=== PATIENT | male | born 1950 | race Caucasian/White ===

== ENCOUNTER 2016-12-25 11:32 | Day surgery (SDC) | payer OTHER, MEDICARE ==
--- NOTE | 2016-12-21 09:22 | MH ---
cc: RORY BENITEZ M.D. DATE OF ADMISSION: 12/25/2016 DATE OF 1950 REASON FOR ADMISSION Cardiac catheterization. HISTORY OF PRESENT ILLNESS The patient is a 66-year-old white male with an extensive history of coronary artery disease, mild ischemic cardiomyopathy, valvular heart disease, hyperlipidemia, who is now admitted for cardiac catheterization. The patient, who recently lost his , has been experiencing fairly frequent chest discomfort for the past three weeks lasting up to 10 minutes. The episodes have been occurring mostly with exertion although he has had episodes at rest. Occasionally the chest discomforts are associated with shortness of breath. Rarely he has chest discomforts which awakened him from sleep. For the most part the chest pains are very similar to his previous angina. He denies pleurisy, dizziness, syncope, palpitations, pedal edema, paroxysmal nocturnal dyspnea. PAST MEDICAL HISTORY 1. Moderate aortic regurgitation demonstrated by echoes, stable since 2010, most recent echo 01/26/2016. 2. History of postoperative (bypass surgery) atrial fibrillation. 3. Mild ischemic cardiomyopathy with ejection fraction of 45-50%. 4. Hyperlipidemia. 5. Mild mitral valve prolapse associated with mild to moderate mitral regurgitation demonstrated on echo of 01/26/2016. 6. Coronary artery disease status post bypass surgery in 2001, status post stent of the vein graft to the first obtuse marginal on 10/29/2014, status post repeat stenting of this graft on 01/20/2015, status post re-do bypass surgery on 02/01/2016 with three separate vein grafts to the obtuse marginal, first diagonal, and LAD. Of note at that time there was no adequate vessel to bypass the right coronary. CARDIAC MEDICATIONS 1. Amlodipine 2.5 mg daily. 2. Aspirin 81 mg daily. 3. Crestor 20 mg daily. 4. Monopril 10 mg daily. 5. Isosorbide mononitrate 120 mg daily. 6. Metoprolol succinate 50 mg b.i.d. 7. Plavix 75 mg daily. 8. Ranexa 500 mg b.i.d. ALLERGIES AMOXICILLIN. BACTRIM. MACROBID. PENICILLIN. ZOCOR. FAMILY HISTORY Noncontributory. SOCIAL HISTORY The patient is a former smoker. There is no history of alcohol abuse. REVIEW OF SYSTEMS As in the history of present illness, otherwise negative or noncontributory. PHYSICAL EXAMINATION VITAL SIGNS: Blood pressure 108/64 with a pulse of 66, respirations 15. GENERAL: He is a well-developed, well-nourished white male in no acute distress. HEENT EXAMINATION/NECK: Jugular venous pressure is normal. Carotid pulses are 2+ bilaterally and without bruits. CHEST: Examination of the chest reveals clear lung yanez. On cardiac examination he has a regular rhythm and rate with a grade 1/6 diastolic murmur heard at the left upper sternal border. No gallop is audible. ABDOMEN: On abdominal examination he has a soft, nontender abdomen. Bowel sounds are present. There is no definite hepatosplenomegaly. EXTREMITIES: Examination of the extremities reveals no clubbing, cyanosis or edema. Peripheral pulses are normal throughout. IMPRESSION Recurrent, worsening angina in this 66-year-old white male with an extensive history of coronary artery disease, history of valvular heart disease, hyperlipidemia, mild cardiomyopathy. The patient has been having some episodes of chest discomfort at rest. He is on fairly maximal medical therapy at this point. Because of the instability of his symptoms he has been recommended repeat cardiac catheterization with possible percutaneous coronary or graft intervention the risks of which have explained him including but not limited to , myocardial infarction, stroke, arrhythmia, bleeding, infection, renal failure. He agrees to proceed. PLAN Cardiac catheterization on 12/25/2016. MD DHEERAJ Gaitan/LEFTY /10:28 AM /9:12 AM JURGEN
[~2016-12-25] VITALS: Ht 175.3 cm; Wt 78.6 kg
[~2016-12-25 11:32] MED LIST: ASPI81CH CHEW; DICL50TA3 PO; FOSI10TA PO; IMDU60TA PO; LEVO75TA3 PO; METO50TA11 PO; PLAV75TA29 PO; PROT40TA PO; RANO500 PO; ROSU20 PO
[2016-12-25] MEDS ORDERED: NS 1000P @30 MLS/HR (KVO) IV SCH (12:00)
[2016-12-25 12:10] VITALS: BP 152/93; PULSE 68; RESP 18; TEMP 98.5; O2SAT 100
[2016-12-25 12:14] LABS: BASOPHIL % 0.7 % (0.0-2.0); EOSINOPHIL # 0.2 TH/MM3 (0-0.4); EOSINOPHIL % 3.1 % (0.0-4.0); HEMATOCRIT 41.9 % (39.0-51.0); HEMO FLAGS DIFF FINAL; LYMPH % 24.1 % (9.0-44.0); LYMPHOCYTE # 1.2 TH/MM3 (1.0-4.8); MEAN CELL VOLUME 93.2 FL (80.0-100.0); MEAN CORPUSCULAR HEMOGLOBIN 31.8 PG (27.0-34.0); MEAN CORPUSCULAR HGB CONC 34.1 % (32.0-36.0); MONO % 11.7 % (0.0-8.0); NEUT % 60.4 % (16.0-70.0); PLATELET COUNT 264 TH/MM3 (150-450); RED CELL DISTRIBUTION WIDTH 13.5 % (11.6-17.2)
[2016-12-25] MEDS ORDERED: ONDA1TAB16 (12:28)
[2016-12-25] MEDS ORDERED: ISOS120T PO (12:28)
[2016-12-25] MEDS ORDERED: AMLO2.5T PO (12:28)
[2016-12-25 12:32] LABS: BICARBONATE 24.8 MEQ/L (21.0-32.0)
[2016-12-25 12:39] LABS: POTASSIUM 5.1 MEQ/L (3.5-5.1)
[2016-12-25] MEDS ORDERED: HEPARIN-NS/PF INJ 500 ML ONE (13:17)
[2016-12-25] MEDS ORDERED: MIDAZOLAM HCL 2 MG/2 ML VIAL ONE (13:17)
[2016-12-25] MEDS ORDERED: SODIUM CHLOR 0.9% 1000 ML INJ 1,000 ML IV ONE (14:21)
--- NOTE | 2016-12-25 14:21 | CATHPROC ---
Certess HIS Report Study Information Study Number Admission Scheduled Start Study Start [id number] 12/25/2016 12/25/2016 Dec 25 2016 1:12PM Study Type Left/Possible PCI Referring Institution Admit Source Facility Department 1 Other [facility] - Journeyman Operator Assistant Physician and Clinical Staff Initial Ramesh Burnette Crown Perforator Operator Tirso RN, Sy Mack,SHEET ROCK TAPER(BS) Scrub Tierra Guerrier,RT(R) (BS) Procedures Performed Procedure Location (Site) Vessel Name Angiogram LV LV Ventricle Coronary Angiograms LCA Left Coronary Coronary Angiograms RCA Right Coronary Coronary Angiograms MOMIN Graft Left Coronary Coronary Angiograms SVG-DIAG Left Coronary Coronary Angiograms SVG-OM CIRC Equipment Time Shop Steward Description Size Mfg Part Number Used/Scraped TRANSDUCER, TRUWAVE 13:25 TAI PHELPS * [id number] Used W/STOCKCOCK 14:08 [employer] MEDICAL VASCADE, FR6 CLOSURE SYSTEM FR 6\7 [id number] Used 13:25 [employer] PACK, CCL CUSTOM * [id number] Used 13:25 [employer] ([employer]) PACER PEN, SKIN DUAL W/ RULER * [id number] Used [id number] 13:25 [employer] MEDICAL SHEATH, FR6.5 PRELUDE 11CM FR 6.5 Used [id number] 13:25 [employer] MEDICAL WIRE, 3MMJ .035 180CM 180CM [id number] Used 13:25 NAMIC MANIFOLD, 4 PORT * [id number] Used 13:48 [employer] OMNIPAQUE, 350 MG, 150ML 150ML [id number] Used 13:25 [employer] MEDICAL BLANKET,WARM AIR CCL * [id number] Used History: Current Medications Medication Dosage/Unit Route Frequency Last Date/Time Taken Beta Dion Statins (any) PLAVIX ASA History: Allergies Allergy Reaction Amoxicillin RASH Bactrim RASH Macrodantin Penicillin RASH Zocor History: Risk Factors Family History of Hypertension Dyslipidemia Previous CT Previous Heart Failure Premature CAD Yes Yes No No No Prior Valve Prior PCI Prior PCIDate Prior CABG Prior CABGDate Surgery No Yes 10/26/2015 Yes 02/01/2016 Cerebrovascular Peripheral Artery Chronic Lung On Dialysis Diabetes Disease Disease Disease No No No No No History: Symptoms/Diagnosis Selection Items Angina-unstable History: Other Current Smoker Method Quit Packs a Day Years Used Pack Years No Cigarettes 35 Years Ago 1 5 5 Labs Hgb (g/dl) Hct (%) WBC (l/cumm) Platelets (thousands) 12.00-18.00 37.00-55.00 4.80-10.80 140.00-450.00 14.3 41.9 5 264 Glucose (mg/dl) BUN (mg/dl) Creatinine (mg/dl) BUN:Creatinine (1:x) 60.00-110.00 8.00-20.00 0.10-9.00 10.00-20.00 88 19 1.1 17.3 Na (meq/l) K (meq/l) 138.00-146.00 3.80-5.10 137 5.1 CPK-MB (ng/ML) 0.00-7.00 Not Drawn Medication Medication Total Dose (Bolus/Oral) Medication Total Dosage/Unit 1% XYLOCAINE 20 mL VERSED 2 mg Medications (Bolus/Oral) Medication Time Given Dosage/Unit Administered By Reason 1% XYLOCAINE 12/25/2016 1:43:03 PM 20 mL Ramesh Esquivel 20 mL 1% XYLOCAINE given in lab by Ramesh Esquivel in Right Groin via Subcutaneous. Ordered by Kevin Esquivel enn. VERSED 12/25/2016 1:43:06 PM 2 mg Tony Chahal RN 2 mg VERSED given in lab by Tony Chahal RN in Left Antecubital via Peripheral IV. Ordered by Ramesh Esquivel. Medication (Drip) Medication Time Given Dosage/Unit Concentration/Unit Diluent (ml) Solution IV Solutions 12/25/2016 1:17:54 PM 0 mL (IV) 500 NaCl .9 Patient arrived on IV Solutions given by Tony Chahal RN in Left Antecubital via Peripheral IV. Pump/ Drip Flow = 20 ml/hr using NaCl .9. Ordered by Ramesh Esquivel. Initial Case Assessment Cardiovascular HR Rhythm NIBP Chest Pain 71 SR W AV BLOCK 121/73 2 Edema Present Skin color Skin None Normal Warm Dry Circulatory - Right Pulses Dorsalis Pedis Posterior Tibial Femoral 2 2 3 Scale (0,1,2,3,4,d) Circulatory - Left Pulses Dorsalis Pedis Posterior Tibial Femoral 2 2 3 Scale (0,1,2,3,4,d) Circulatory - Lower Extremities Color Lower Right Color Lower Left Normal Normal Neurological State Oriented to time-place- Alert Moves all extremities person Respiration - General Respiration Rate SpO2 (%) (B/min) 20 97 Final Case Assessment Cardiovascular HR Rhythm NIBP Chest Pain 87 SR W AV BLOCK 106/61 2 Edema Present Skin color Skin None Normal Warm Dry Circulatory - Right Pulses Dorsalis Pedis Posterior Tibial Femoral 2 2 3 Scale (0,1,2,3,4,d) Circulatory - Left Pulses Dorsalis Pedis Posterior Tibial Femoral 2 2 3 Scale (0,1,2,3,4,d) Circulatory - Lower Extremities Color Lower Right Color Lower Left Normal Normal Neurological State Oriented to time-place- Alert Moves all extremities person Respiration - General Respiration Rate SpO2 (%) (B/min) 20 97 Chronological Log Time Study Chronological Log 13:10:00 Patient arrived via Bed. 13:10:04 Patient Name, D.O.B, / Armband Verified By R.N. 13:10:04 Consent signed by the physician and the patient and verified by the Journeyman Operator Assistant staff. 13:10:05 Pre-op and post- op instructions given; patient acknowledges understanding of instructions. Vitals capture started with the following parameters, Patient=Adult, Interval=5 min, Initial Pr pfdzqk=140 mmHg, 13:14:42 Deflation Rate=5 mmHg 13:15:24 HR=71 bpm, FWWP=706/74 mmhg, YvK1=398.0 %, Resp=15 B/min, Pain=2, Staci=10, Ram=2 13:17:00 Patient has been NPO for Less than 6Hrs. 13:17:01 Skin Breakdown. 13:17:02 Patient Warmer Placed on the Table. 13:17:53 A # 20 IV was noted in the Antecubital (left). Grade = 0 Patient arrived on IV Solutions given by Toyn Chahal RN in Left Antecubital via Peripheral IV. Pump/Drip Flow = 20 13:17:54 ml/hr using NaCl .9. Ordered by Ramesh Esquivel. 13:17:56 History and physical on the chart or being dictated. Assessment: Initial Case, HR=71 BPM, Rhythm=SR W AV BLOCK, HYZH=236/73 mmhg, Chest Pain=2, Roger a=None, Color=Normal, Skin = Warm, Dry Right Pulses: Julian Ped=2, Post Tib=2, Femoral=3 Left Pulses: Julian Ped=2, Post Tib=2, Femoral=3 13:17:56 Lower Right Extremities: Color=Normal Lower Left Extremities: Color=Normal Neurological: State=Alert, Ox3, IRVIN Respiration: Resp=20 B/min, SpO2=97 % 13:20:15 HR=71 bpm, YAGV=390/72 mmhg, KaC5=756.0 %, Resp=11 B/min, Pain=2, Staci=10, Ram=2 13:25:18 HR=65 bpm, OOBH=303/73 mmhg, SpO2=99.0 %, Resp=16 B/min, Pain=2, Staci=10, Ram=2 13:29:05 Pressure channel 1 zeroed. 13:30:19 HR=72 bpm, CYDI=402/63 mmhg, SpO2=97.0 %, Resp=14 B/min, Pain=2, Staci=10, Ram=2 13:31:18 Bilateral groins prepped with 2% chlorhexidine, and with a 3 min. waiting time. 13:31:22 MD paged 13:33:27 Reference ECG taken 13:35:18 HR=69 bpm, VSVH=493/72 mmhg, SpO2=99.0 %, Resp=14 B/min, Pain=2, Staci=10, Ram=2 13:39:36 MD arrived. 13:40:17 HR=70 bpm, ECLF=781/70 mmhg, SpO2=97.0 %, Resp=12 B/min, Pain=2, Staci=10, Ram=2 Time Out. Correct patient, correct procedure,correct physician, power injector loaded with cont rast with surgical team 13:42:10 present. Time Out Concurred by , individual staff in procedure 13:42:12 Case Start 13:43:03 20 mL 1% XYLOCAINE given in lab by Ramesh Esquivel in Right Groin via Subcutaneous. Ordered by Ramesh Esquivel. 13:43:06 2 mg VERSED given in lab by Tony Chahal RN in Left Antecubital via Peripheral IV. Ordered by Ramesh Esquivel. 13:45:51 Access site was RIGHT Femoral Artery. 13:45:53 HR=72 bpm, PKTN=945/70 mmhg, SpO2=97.0 %, Resp=16 B/min 13:46:00 A SHEATH, FR6.5 PRELUDE 11CM FR 6.5 was advanced into the Fem Art (right) using the Percuta neous technique. A JL 4.0 INFINITI CATHETER FR 6 was advanced over a wire. OMNIPAQUE, 350 MG, 150ML 150ML was us ed for 13:46:45 injections. Recorded Pressure: Ao, HR=78, Condition=Condition 1 13:47:14 (Aorta) Ao 112/65/86 13:47:42 The LCA was injected and visualized at various angles. OMNIPAQUE, 350 MG, 150ML 150ML used . 13:48:06 Catheter was removed A 3DRC INFINITI CATHETER FR 6 was advanced over a wire. OMNIPAQUE, 350 MG, 150ML 150ML was used for 13:48:10 injections. 13:48:58 The SVG-DIAG was injected and visualized at various angles. OMNIPAQUE, 350 MG, 150ML 150ML used. 13:50:19 HR=93 bpm, LALJ=660/79 mmhg, SpO2=96.0 %, Resp=19 B/min, Pain=2, Staci=10, Ram=2 13:50:42 The SVG-OM was injected and visualized at various angles. OMNIPAQUE, 350 MG, 150ML 150ML us ed. Recorded Pressure: Ao, HR=92, Condition=Condition 1 13:51:13 (Aorta) Ao 127/68/94 13:52:00 The MOMIN Graft was injected and visualized at various angles. OMNIPAQUE, 350 MG, 150ML 150M L used. 13:54:10 Catheter was removed A AR MOD INFINITI CATHETER FR 6 was advanced over a wire. OMNIPAQUE, 350 MG, 150ML 150ML was us ed for 13:54:11 injections. 13:55:20 HR=83 bpm, NTMM=580/66 mmhg, SpO2=97.0 %, Resp=13 B/min, Pain=2, Staci=10, Ram=2 13:56:25 Catheter was removed A 3DRC INFINITI CATHETER FR 6 was advanced over a wire. OMNIPAQUE, 350 MG, 150ML 150ML was used for 13:57:17 injections. 13:58:16 The RCA was injected and visualized at various angles. OMNIPAQUE, 350 MG, 150ML 150ML used . 14:00:11 Catheter was removed 14:00:22 HR=84 bpm, JYJL=512/70 mmhg, SpO2=97.0 %, Resp=18 B/min, Pain=2, Staci=10, Ram=2 A MPA-2 INFINITI CATHETER FR 6 was advanced over a wire. OMNIPAQUE, 350 MG, 150ML 150ML was us ed for 14:00:40 injections. 14:03:08 Catheter was removed A PIGTAIL STR INFINITI CATHETER FR 6 was advanced over a wire. OMNIPAQUE, 350 MG, 150ML 150ML was used for 14:03:12 injections. 14:03:38 The LV was injected at 12 cc/sec for a total of 42. OMNIPAQUE, 350 MG, 150ML 150ML used. Recorded Pressure: LV, HR=89, Condition=Condition 1 14:04:03 (Left Ventricle) LV 118/2/11 14:05:21 HR=81 bpm, BKJG=193/61 mmhg, SpO2=95.0 %, Resp=15 B/min, Pain=2, Staci=10, Ram=2 Recorded Pressure: LV, Ao, HR=84, Condition=Condition 1 14:06:01 (Left Ventricle) LV 113/-1/10, (Aorta) Ao 104/50/75 14:06:49 Catheter was removed 14:06:54 An injection in the Fem Art (right) was made through the SHEATH, FR6.5 PRELUDE 11CM FR 6.5 . 14:07:40 VASCADE, FR6 CLOSURE SYSTEM FR 6\7 placement in the Fem Art (right) 14:08:47 Case End Assessment: Final Case, HR=87 BPM, Rhythm=SR W AV BLOCK, SLOI=671/61 mmhg, Chest Pain=2, Edema =None, Color=Normal, Skin = Warm, Dry Right Pulses: Julian Ped=2, Post Tib=2, Femoral=3 Left Pulses: Julian Ped=2, Post Tib=2, Femoral=3 14:08:57 Lower Right Extremities: Color=Normal Lower Left Extremities: Color=Normal Neurological: State=Alert, Ox3, IRVIN Respiration: Resp=20 B/min, SpO2=97 % 14:10:20 HR=82 bpm, XJAC=235/60 mmhg, SpO2=98.0 %, Resp=21 B/min, Pain=2, Staci=10, Ram=2 14:10:32 Sterile dressing applied to site 14:10:33 No case complications noted. 14:10:36 Cine recording checked. 14:17:42 Vitals capture stopped. End Study - Contrast Media Used In Study Contrast Total Opened (mL) Total Used (mL) Total Wasted (mL) Omnipaque 150 150 0 End Study - Maximum Contrast Load Max Contrast Load (mL) 357.2 End Study - Radiation Exposure Fluoro Time (minutes) 7.5 End Study - Patient Disposition Complications Transferred To No Telemetry Bed
[2016-12-25] MEDS ORDERED: ATROPINE SULFATE 1 MG/ML VIAL IVP PRN (14:30)
[2016-12-25] MEDS ORDERED: ONDANSETRON HCL 4 MG/2 ML VIAL IV PRN (14:30)
[2016-12-25] MEDS ORDERED: SODIUM CHLOR 0.9% 250 ML INJ 250 ML IV PRN (14:30)
--- NOTE | 2016-12-25 14:57 | MA ---
cc: RORY BENITEZ M.D. DATE: 12/25/2016 PROCEDURE Left heart catheterization, selective coronary and graft angiography, left ventriculography. PROCEDURE NOTES The patient was brought to the cardiac catheterization laboratory in a fasting state after having signed informed consent. The right groin was prepped and draped as per policy and anesthetized with 1% lidocaine. Arterial access was obtained via the right femoral artery and a 6-Senegalese sheath placed. Coronary arteriography was performed using 6-Senegalese Cheryl left 4.0 and multipurpose catheters. All of the bypass grafts were engaged with a progressive right catheter. Left ventriculography was done using a standard 6-Senegalese pigtail. There were no apparent immediate complications. His arteriotomy site was closed with Vascade with the achievement of good hemostasis. HEMODYNAMIC DATA Left ventricle 113 with an end-diastolic pressure of 15. Aorta 104/50 with a mean of 75. There was no significant transvalvular aortic gradient on pullback of the pigtail catheter. CORONARY ARTERIOGRAPHY The left main is probably diffusely diseased. It is difficult to quantify the degree of stenosis but likely approaches 40% distally. The left anterior descending is totally occluded proximally. A very small diagonal arises from the proximal LAD and there may be up to 80% ostial stenosis of the diagonal. The left circumflex is a medium-sized vessel giving rise to a small obtuse marginal, which has 90% ostial stenosis. The left circumflex has diffuse proximal disease resulting in up to 20% stenosis. The right coronary artery was difficult to selectively engage. Sub-selective shots do reveal diffuse severe disease from its proximal to midportion resulting in up to 80% stenosis, and the vessel appears to be totally occluded distally. There are good LAD to right coronary collaterals. GRAFT ANGIOGRAPHY The left internal mammary artery is very atretic and tortuous with a network of small vessels surrounding it. It may have been at one time anastomosed to the LAD, but appears to be nonfunctioning as a bypass graft at this time. An old Y-graft to the LAD and diagonal was engaged and has 80% ostial stenosis. The newer Y-graft to the LAD and diagonal is widely patent. A graft to the obtuse marginal has diffuse mild irregularities of the midportion resulting in up to 20% stenosis. The patient's vein graft to the right coronary artery is known to be chronically totally occluded. LEFT VENTRICULOGRAPHY Contrast injection of the left ventricle reveals no segmental wall motion abnormalities. Ejection fraction is estimated at 55-60%. There may also be moderate mitral regurgitation. CONCLUSIONS 1. Severe three-vessel [place]ct[place] coronary artery disease including a totally occluded but well-collateralized right coronary artery. 2. Patent Y-graft to the LAD and diagonal, patent vein graft to the obtuse marginal, chronically totally occluded vein graft to the right coronary artery. 3. Normal left ventricular function with estimated ejection fraction of 55-60%. 4. Possible moderate mitral regurgitation. MD DHEERAJ Gaitan/NICOLE /2:18 PM /2:51 PM MTDTeresa
[2016-12-25] MEDS ORDERED: IOHEXOL 350 MG/ML 100 ML BTL (for Cath Lab) OTHER ONE (15:19)
--- NOTE | 2016-12-25 22:39 | EKG ---
Date Performed: 12/25/2016 Time Performed: 12:14:18 PTAGE: 66 years EKG: Sinus rhythm with borderline 1st degree A-V block Nondiagnostic inferior Q waves Borderline ECG PREVIOUS TRACING : 07/03/2016 17.09 No significant change from previous tracing noted. DOCTOR: Ramesh Esquivel Interpretating Date/Time 12/25/2016 22:39:17
== END 2016-12-25 16:36 | disposition home or self-care (01) ==
LOC: HCAT 11:32 → HDIC 11:35 → HCAT 16:36
PROVIDERS: ATTEND Internal Medicine Cardiovascular Disease
DX: I25.10 Atherosclerotic heart disease of native coronary artery without angina pectoris (principal); T82.858A Stenosis of other vascular prosthetic devices, implants and grafts, initial encounter; I25.5 Ischemic cardiomyopathy; I48.91 Unspecified atrial fibrillation; I34.0 Nonrheumatic mitral (valve) insufficiency; I34.1 Nonrheumatic mitral (valve) prolapse; Z79.82 Long term (current) use of aspirin; E78.5 Hyperlipidemia, unspecified; Z87.891 Personal history of nicotine dependence; Z01.818 Encounter for other preprocedural examination
CPT/HCPCS: 80048; 85025; 93005; 93459; C1760; C1769; C1893; G0269; J1644; J2250; Q9967

== ENCOUNTER 2017-06-08 17:27 | Observation (INO) | payer OTHER, MEDICARE ==
[~2017-06-08] VITALS: Ht 175.3 cm; Wt 82.0 kg
[~2017-06-08 17:27] MED LIST changes: +AMLO2.5T PO; -ASPI81CH CHEW; +ASPI81CH PO; -IMDU60TA PO; +ISOS120T PO; +ONDA1TAB16
[2017-06-08 17:31] VITALS: BP 192/92; PULSE 90; RESP 16; TEMP 98; O2SAT 95
[2017-06-08] MEDS ORDERED: SODIUM CHLORIDE 0.9% FLUSH 10 ML FLUSH IVF PRN (18:00)
[2017-06-08] MEDS ORDERED: ASPIRIN 81 MG CHEW TAB PO ONE ×2 (18:00→20:00)
[2017-06-08 18:05] VITALS: BP 147/70; PULSE 80; RESP 18; O2SAT 98
--- NOTE | 2017-06-08 18:06 | PD ---
HPI Chief Complaint: Chest Pain Time Seen by Provider: 17:45 Travel History International Travel<30 days: No Contact w/Intl Traveler<30days: No Traveled to known affect area: No History of Present Illness HPI Patient comes in complaining of intermittent chest tightness over the past week. Patient states that today after he got home from work he is feeling fatigued and having some tightness in his chest substernally without radiation. Patient states he's been monitoring his blood pressure over the past week has been running high for him going between the 140s to 160s systolically. Patient denies anything making this better or worse. Denies taking anything for prior coming to the emergency department. Patient reports he contacted his learning disabilities resource teacher's office and told them that he was coming to the emergency department for this. Denies any shortness of breath, diaphoresis, numbness or tingling anywhere, back pain, headache, or loss or change in bowel or bladder. Patient reports he takes baby aspirin along with Plavix daily, has not taken that today. Patient reports the pain is constant and has not resolved yet. Patient reports that he had a stress test this past November was reportedly fine. Patient states he did have a cardiac catheter done a month or 2 after that that was fine as well. Patient sees Dr. Esquivel. [facility] Past Medical History Hx Anticoagulant Therapy: Yes (PLAVIX AND ASA) Autoimmune Disease: No Cancer: Yes (basal cell carcinoma ) Cardiovascular Problems: Yes (hx: 5 caths) High Cholesterol: No Chemotherapy: No Chest Pain: No Congestive Heart Failure: No Diabetes: No Endocrine: No Gastrointestinal Disorders: No Glaucoma: No Headaches: Yes Hiatal Hernia: No Hypertension: Yes Immune Disorder: No Musculoskeletal: No Neurologic: Yes Psychiatric: No Respiratory: No Integumentary: No Seizures: No Thyroid Disease: Yes (goiter on thyroid- takes synthroid ) Past Surgical History Cardiac Surgery: Yes (open heart procedure ) Coronary Artery Bypass Graft: Yes (5 BYPASS GRAFTS) Pacemaker: No Thoracic Surgery: Yes (cabg) Other Surgery: Yes (CERVICAL FUSION, HERNIA REPAIR INGUINAL) Social History Alcohol Use: No (OCCASIONAL) Tobacco Use: No Substance Use: No Allergies-Medications (Allergen,Severity, Reaction): Coded Allergies: amoxicillin (Unverified Allergy, Severe, RASH, 06/08/17) penicillin G (Unverified Allergy, Severe, RASH, 06/08/17) simvastatin (Unverified Allergy, Severe, 06/08/17) sulfamethoxazole (Unverified Allergy, Severe, RASH, 06/08/17) trimethoprim (Unverified Allergy, Severe, RASH, 06/08/17) nitrofurantoin (Unverified Allergy, Intermediate, 06/08/17) Reported Meds & Prescriptions Reported Meds & Active Scripts Active Reported Cranberry (Cranberry Fruit Extract) 500 Mg Capsule 500 Mg PO BID Ascorbic Acid 500 Mg Tab 500 Mg PO BID Multiple Vitamin 1 Tab 1 Tab PO DAILY Isosorbide Mononitrate ER (Isosorbide Mononitrate) 60 Mg Tab 60 Mg PO DAILY Amlodipine (Amlodipine Besylate) 2.5 Mg Tab 2.5 Mg PO DAILY Diclofenac Sodium DR (Diclofenac Sodium) 50 Mg Tabdr 50 Mg PO BID Protonix (Pantoprazole Sodium) 40 Mg Tab 40 Mg PO DAILY Fosinopril (Fosinopril Sodium) 10 Mg Tab 10 Mg PO DAILY Plavix (Clopidogrel Bisulfate) 75 Mg Tab 75 Mg PO DAILY Levothyroxine (Levothyroxine Sodium) 75 Mcg Tab 75 Mcg PO DAILY Metoprolol Succinate ER 24 HR (Metoprolol Succinate) 50 Mg Tab 50 Mg PO DAILY Crestor (Rosuvastatin Calcium) 20 Mg Tab 20 Mg PO DAILY Aspirin 81 Mg Chew 81 Mg PO DAILY Review of Systems Except as stated in HPI: all other systems reviewed are Neg Physical Exam Narrative GENERAL: Well-developed, overly nourished, in no acute distress, and non-ill appearing. SKIN: Focused skin assessment warm and dry. HEAD: Atraumatic. Normocephalic. EYES: Pupils equal and round. EOMI. No scleral icterus. No injection or drainage. ENT: No nasal bleeding or discharge. Mucous membranes pink and moist. NECK: Trachea midline. No JVD. Supple. No nuclear rigidity. CARDIOVASCULAR: Regular rate and rhythm. No murmur appreciated. RESPIRATORY: No accessory muscle use. No respiratory distress. Clear to auscultation. Breath sounds equal bilaterally. MUSCULOSKELETAL: No obvious deformities. No clubbing. No cyanosis. No edema. Full range of motion. NEUROLOGICAL: Awake and alert. No obvious cranial nerve deficits. Motor grossly within normal limits. Normal speech. PSYCHIATRIC: Appropriate mood and affect; insight and judgment normal. Data Data Last Documented VS Vital Signs Date Time Temp Pulse Resp B/P (MAP) Pulse Ox O2 Delivery O2 Flow Rate FiO2 06/08/17 19:33 69 133/69 (90) 06/08/17 19:33 19 96 Room Air 06/08/17 17:31 98.0 Orders Orders Electrocardiogram (06/08/17 17:53) Basic Metabolic Panel (Bmp) (06/08/17 17:53) Ckmb (Isoenzyme) Profile (06/08/17 17:53) Complete Blood Count With Diff (06/08/17:53) Magnesium (Mg) (06/08/17:53) Prothrombin Time / Inr (Pt) (06/08/17:53) Act Partial Throm Time (Ptt) (06/08/17:53) Troponin I (06/08/17:53) Chest, Single Ap (06/08/17:53) Ecg Monitoring (06/08/17:53) Bilateral Bp Monitoring (06/08/17:53) Iv Access Insert/Monitor (06/08/17:53) Oximetry (06/08/17:53) Oxygen Administration (06/08/17 17:53) Aspirin Chew (Aspirin Chew) (06/08/17 18:00) Sodium Chloride 0.9% Flush (Ns Flush) (06/08/17 18:00) CKMB (06/08/17 18:15) CKMB% (06/08/17 18:15) Admit Order (Ed Use Only) (06/08/17 19:58) Activity Bed Rest With Brp (06/08/17 19:58) Vital Signs (Adult) Q4H (06/08/17 19:58) Cardiac Rhythm .As Directed (06/08/17 19:58) Notify Dr: Other .PRN (06/08/17 19:58) Notify Dr. Parameters (06/08/17 19:58) Resp Oxygen Nasal Cannula (06/08/17 ) Ckmb (Isoenzyme) Profile (06/08/17 21:25) Ckmb (Isoenzyme) Profile (06/09/17 00:25) Troponin I (06/08/17 21:25) Troponin I (06/09/17 00:25) Electrocardiogram (06/08/17 21:25) Electrocardiogram (06/09/17 00:25) ^ Obtain (06/08/17 19:58) Sodium Chloride 0.9% Flush (Ns Flush) (06/08/17 20:00) Sodium Chloride 0.9% Flush (Ns Flush) (06/08/17 21:00) Aspirin Chew (Aspirin Chew) (06/08/17 20:00) Forestry Adviser / Telemetry TOMAS.Q8H (06/08/17 19:58) Labs Laboratory Tests Test 06/08/17 18:15 White Blood Count 8.1 TH/MM3 Red Blood Count 4.19 MIL/MM3 Hemoglobin 13.4 GM/DL Hematocrit 38.5 % Mean Corpuscular Volume 91.7 FL Mean Corpuscular Hemoglobin 32.0 PG Mean Corpuscular Hemoglobin Concent 34.9 % Red Cell Distribution Width 13.1 % Platelet Count 216 TH/MM3 Mean Platelet Volume 7.2 FL Neutrophils (%) (Auto) 68.9 % Lymphocytes (%) (Auto) 18.8 % Monocytes (%) (Auto) 9.5 % Eosinophils (%) (Auto) 2.4 % Basophils (%) (Auto) 0.4 % Neutrophils # (Auto) 5.6 TH/MM3 Lymphocytes # (Auto) 1.5 TH/MM3 Monocytes # (Auto) 0.8 TH/MM3 Eosinophils # (Auto) 0.2 TH/MM3 Basophils # (Auto) 0.0 TH/MM3 CBC Comment DIFF FINAL Differential Comment Prothrombin Time 9.9 SEC Prothromb Time International Ratio 0.9 RATIO Activated Partial Thromboplast Time 26.2 SEC Blood Urea Nitrogen 17 MG/DL Creatinine 0.91 MG/DL Random Glucose 87 MG/DL Calcium Level 9.3 MG/DL Magnesium Level 2.2 MG/DL Sodium Level 136 MEQ/L Potassium Level 4.3 MEQ/L Chloride Level 104 MEQ/L Carbon Dioxide Level 23.4 MEQ/L Anion Gap 9 MEQ/L Estimat Glomerular Filtration Rate 83 ML/MIN Total Creatine Kinase 173 U/L Creatine Kinase MB 2.7 NG/ML Troponin I LESS THAN 0.02 NG/ML MDM Medical Decision Making Medical Screen Exam Complete: Yes Emergency Medical Condition: Yes Interpretation(s) EKG reviewed by Dr. Fernandez shows normal sinus rhythm with ventricular rate of 67. No STEMI. Last Impressions Chest X-Ray 06/08/17 1753 Signed Impressions: Service Date/Time: Thursday, June 08, 2017 18:15 - CONCLUSION: Cardiomegaly. The lungs are clear. Samuel Green MD Differential Diagnosis Acute coronary syndrome, angina, unstable angina, ocular abnormality, pneumonia , other Narrative Course Patient was seen and examined. Laboratory radiological studies were ordered. IV was established patient was placed on a php lamp developer. Patient was given total of 243 mg of ASA. Discussed patient with Dr. Fernandez, who is in agreement with plan of care and disposition. Discussed all of findings and plan care of patient, who is agreeable for admission. All questions were answered. Patient remained stable throughout ED course. On reevaluation the patient's blood pressure was noted to be 133/69. Physician Communication Physician Communication [address] Reed, who is covering for Dr. Esquivel. After patient reviewed patient's previous cardiac catheter feels as though patient is able to be evaluated in the chest pain center. Diagnosis Primary Impression: Chest pain Qualified Codes: R07.9 - Chest pain, unspecified Admitting Information Admitting Physician Requests: Observation Condition: Stable Terence Mancia Jun 08, 2017 18:06
[2017-06-08 18:12] VITALS: PULSE 73; RESP 18; O2SAT 99
[2017-06-08] MEDS ORDERED: ISOS60TA PO (18:39)
[2017-06-08] MEDS ORDERED: ASCO500T PO (18:41)
[2017-06-08] MEDS ORDERED: CRAN500C9 PO (18:41)
[2017-06-08] MEDS ORDERED: MULTTAB67 PO (18:41)
--- NOTE | 2017-06-08 18:47 | RADRPT ---
EXAM DATE/TIME: 06/08/2017 18:15 [place] COMPARISON: CHEST SINGLE AP, July 03, 2016, 11:35. INDICATIONS : Patient states that he is having problems with his blood pressure today. MEDICAL HISTORY : Cardiovascular disease. Hypertension. Afib. SURGICAL HISTORY : CABG. Fusion, cervical. ENCOUNTER: Initial ACUITY: 1 day PAIN SCORE: 2/10 LOCATION: Bilateral upper chest FINDINGS: The patient is status post sternotomy. The heart size is enlarged. The lungs are clear. No effusion i s seen. Clips are seen over the left clavicle. There is anterior cervical fusion plate present. CONCLUSION: Cardiomegaly. The lungs are clear. Samuel Green MD on June 08, 2017 at 18:45 Board Certified Radiologist. This report was verified electronically.
[2017-06-08 19:01] LABS: AUTOMATED NEUTROPHIL # 5.6 TH/MM3 (1.8-7.7); BASOPHIL % 0.4 % (0.0-2.0); EOSINOPHIL # 0.2 TH/MM3 (0-0.4); EOSINOPHIL % 2.4 % (0.0-4.0); HEMATOCRIT 38.5 % (39.0-51.0); HEMO FLAGS DIFF FINAL; LYMPH % 18.8 % (9.0-44.0); LYMPHOCYTE # 1.5 TH/MM3 (1.0-4.8); MEAN CELL VOLUME 91.7 FL (80.0-100.0); MEAN CORPUSCULAR HGB CONC 34.9 % (32.0-36.0); MONO % 9.5 % (0.0-8.0); NEUT % 68.9 % (16.0-70.0); PLATELET COUNT 216 TH/MM3 (150-450); RED BLOOD COUNT 4.19 MIL/MM3 (4.50-5.90); RED CELL DISTRIBUTION WIDTH 13.1 % (11.6-17.2); WHITE BLOOD COUNT 8.1 TH/MM3 (4.0-11.0)
[2017-06-08 19:12] LABS: APTT (PATIENT) 26.2 SEC (24.3-30.1); INTERNATIONAL NORMALIZED RATIO 0.9 RATIO; PROTHROMBIN TIME - PATIENT 9.9 SEC (9.8-11.6)
[2017-06-08 19:31] VITALS: BP 145/75; PULSE 68; RESP 17; O2SAT 99
[2017-06-08 19:33] VITALS: BP 133/69; PULSE 69; RESP 19; O2SAT 96
[2017-06-08 19:35] LABS: ANION GAP 9 MEQ/L (5-15); BICARBONATE 23.4 MEQ/L (21.0-32.0); BLOOD UREA NITROGEN 17 MG/DL (7-18); CHLORIDE 104 MEQ/L (98-107); GLOMERULAR FILTRATION RATE 83 ML/MIN (>89); MAGNESIUM 2.2 MG/DL (1.5-2.5); POTASSIUM 4.3 MEQ/L (3.5-5.1); SODIUM (NA) 136 MEQ/L (136-145)
[2017-06-08 19:39] LABS: CREATINE KINASE 173 U/L (39-308)
[2017-06-08 19:51] LABS: CKMB 2.7 NG/ML (0.5-3.6)
[2017-06-08] MEDS ORDERED: SODIUM CHLORIDE 0.9% FLUSH 10 ML FLUSH IV FLUSH PRN (20:00)
[2017-06-08] MEDS: SODIUM CHLORIDE 0.9% FLUSH 10 ML FLUSH IV FLUSH SCH (21:08)
[2017-06-08 21:14] VITALS: BP 132/70; PULSE 62; RESP 16; TEMP 98.2; O2SAT 97
--- NOTE | 2017-06-08 21:18 | EKG ---
Date Performed: 06/08/2017 Time Performed: 17:43:12 PTAGE: 67 years EKG: Sinus rhythm PROBABLE INFERIOR MYOCARDIAL INFARCTION ABNORMAL ECG Compared to prior electrocardiogram, probably i nferior ME pattern is present. PREVIOUS TRACING : 12/25/2016 12.14 DOCTOR: Franko Hbobs Interpretating Date/Time 06/08/2017 21:17:23
[2017-06-08 22:55] LABS: CREATINE KINASE 164 U/L (39-308)
[2017-06-08 23:07] LABS: CKMB 2.6 NG/ML (0.5-3.6)
[2017-06-09] VITALS (8 sets, daily range): BP systolic 102–122; BP diastolic 55–64; PULSE 57–71; RESP 18; TEMP 97.5–98.1; O2SAT 97–98
[2017-06-09 04:30] LABS: CREATINE KINASE 137 U/L (39-308)
[2017-06-09 04:42] LABS: CKMB 1.8 NG/ML (0.5-3.6)
[2017-06-09] MEDS ORDERED: PILL SPLITTER OTHER PRN (08:45)
[2017-06-09] MEDS ORDERED: LEVOTHYROXINE SODIUM 75 MCG TAB PO SCH (09:00)
[2017-06-09] MEDS ORDERED: amLODIPine BESYLATE 5 MG TAB PO SCH (09:00)
[2017-06-09] MEDS ORDERED: ISOSORBIDE MONONITRATE 60 MG TAB PO SCH (09:00)
[2017-06-09] MEDS ORDERED: PANTOPRAZOLE SOD 40 MG DELAYED RELEASE TAB PO SCH (09:00)
[2017-06-09] MEDS ORDERED: ATORVASTATIN 40 MG TAB PO SCH (09:00)
[2017-06-09] MEDS ORDERED: CLOPIDOGREL 75 MG TAB PO SCH (09:00)
[2017-06-09] MEDS ORDERED: LISINOPRIL 10 MG TAB PO SCH (09:00)
[2017-06-09] MEDS ORDERED: METOPROLOL SUCCINATE 50 MG EXTENDED RELEASE TAB PO SCH (09:00)
--- NOTE | 2017-06-09 09:19 | HHI.HP ---
HPI Primary Care Physician Geronimo Jeronimo MD Chief Complaint Chest pain History of Present Illness This is a 89-year-old male that presents to ED with history of CAD having a 5 vessel bypass 2001 and a 3 vessel redo bypass January 2016 with a clean of chest discomfort and hypertension. Most of his conversation was about his hypertension. Patient states that he has been checking his blood pressures and they have been in the 140s which is very high for him. He states his blood pressure at highest would usually be 118. States he has compliance with his medications. He states that he called his flag car driver's office but was playing phone tag and was not able to discuss with them his hypertension. Also states that he believes one of the new medications he was placed on is causing him to have frequent urinary tract infections. States he's had 5 urinary tract infection since December after being placed on amlodipine and believes that is the culprit. Patient had a heart catheterization December 25, [address] Esquivel after the patient was having complaints of chest discomforts while he was in [place]. Cardiac catheterization revealed a chronic included graft to the RCA but otherwise patent three-vessel breasts. He states that that is when he was placed on amlodipine. Patient states that yesterday he went home and was about to mow his grass and decided to check his blood pressure. His blood pressure was 160/109 and soon later he began to have a discomfort in his chest. Could only describe it as a pain. It was a 5 out of 10. He recalls being a little short of breath. Little nauseous and a little diaphoretic. He decided to come to the ED. His discomfort lasted 2-1/2-3 hours. Found nothing to worsen or improve it while he had a. Discomfort did not radiate from the center of his chest. Review of Systems General: Patient denies fevers, chills recent, and recent travel HEENT: Patient denies headache, sore throat, difficulty swallowing. Cardiovascular: Has the chest discomfort as mentioned above. Denies sensation of heart beating rapidly or irregularly. No syncope. Mild diaphoresis. Respiratory: Mildly short of breath. Denies inspirational chest discomfort. Denies coughing wheezing or hemoptysis. GI: Mild nausea. Patient denies vomiting, diarrhea, abdominal pain, bloody stools. Musculoskeletal: Patient denies joint pain or edema. Denies calf pain or edema. Neurovascular: Patient denies numbness, tingling, weakness in extremities. Denies headache. Endocrine: Denies polyuria and polydipsia. Hematologic: Denies easy bruising. Skin: Denies rash or itching. Past Family Social History Allergies: Coded Allergies: amoxicillin (Unverified Allergy, Severe, RASH, 06/08/17) penicillin G (Unverified Allergy, Severe, RASH, 06/08/17) simvastatin (Unverified Allergy, Severe, 06/08/17) sulfamethoxazole (Unverified Allergy, Severe, RASH, 06/08/17) trimethoprim (Unverified Allergy, Severe, RASH, 06/08/17) nitrofurantoin (Unverified Allergy, Intermediate, 06/08/17) Past Medical History CAD with a 5 vessel bypass 2001 and a 3 vessel redo bypass January 2016. Hypertension, hyperlipidemia, GERD, and hypothyroidism. Denies diabetes. Past Surgical History CABG in 2001 and January 2016. Cervical fusion. Hernia repair. Reported Medications Reported Meds & Active Scripts Active Reported Cranberry (Cranberry Fruit Extract) 500 Mg Capsule 500 Mg PO BID Ascorbic Acid 500 Mg Tab 500 Mg PO BID Multiple Vitamin 1 Tab 1 Tab PO DAILY Isosorbide Mononitrate ER (Isosorbide Mononitrate) 60 Mg Tab 60 Mg PO DAILY Amlodipine (Amlodipine Besylate) 2.5 Mg Tab 2.5 Mg PO DAILY Diclofenac Sodium DR (Diclofenac Sodium) 50 Mg Tabdr 50 Mg PO BID Protonix (Pantoprazole Sodium) 40 Mg Tab 40 Mg PO DAILY Fosinopril (Fosinopril Sodium) 10 Mg Tab 10 Mg PO DAILY Plavix (Clopidogrel Bisulfate) 75 Mg Tab 75 Mg PO DAILY Levothyroxine (Levothyroxine Sodium) 75 Mcg Tab 75 Mcg PO DAILY Metoprolol Succinate ER 24 HR (Metoprolol Succinate) 50 Mg Tab 50 Mg PO DAILY Crestor (Rosuvastatin Calcium) 20 Mg Tab 20 Mg PO DAILY Aspirin 81 Mg Chew 81 Mg PO DAILY Active Ordered Medications Current Medications Medications (Trade) Dose Ordered Sig/Clare Route Start Time Stop Time Status Last Admin (NS Flush) 2 ml UNSCH PRN IV FLUSH 06/08/17 20:00 (NS Flush) 2 ml BID IV FLUSH 06/08/17 21:00 06/08/17 21:08 (Norvasc) 2.5 mg DAILY PO 10/14/17 09:00 06/09/17 08:59 (Plavix) 75 mg DAILY PO 06/09/17 09:00 06/09/17 08:56 (Prinivil) 10 mg DAILY PO 06/09/17 09:00 06/09/17 08:54 (Imdur) 60 mg DAILY PO 06/09/17 09:00 06/09/17 08:59 (Synthroid) 75 mcg DAILY@0600 PO 06/09/17 09:00 (Toprol Xl) 50 mg DAILY PO 06/09/17 09:00 06/09/17 08:59 (Protonix) 40 mg DAILY PO 06/09/17 09:00 06/09/17 08:53 (Lipitor) 40 mg DAILY PO 06/09/17 09:00 06/09/17 08:55 (Pill Splitter) 1 ea UNSCH PRN OTHER 06/09/17 08:45 Family History There is family history of CAD. Social History Denies tobacco abuse. Denies illicit drug use. Occasional alcohol. Physical Exam Vital Signs Vital Signs Date Time Temp Pulse Resp B/P (MAP) Pulse Ox O2 Delivery O2 Flow Rate FiO2 06/09/17 07:28 97.7 58 18 122/60 (80) 97 06/09/17 05:48 98 06/09/17 05:30 98.1 60 18 102/55 (71) 98 06/09/17 04:57 66 06/09/17 02:21 57 06/09/17 00:17 97.5 62 18 109/64 (79) 97 06/08/17 21:14 98.2 62 16 132/70 (90) 97 06/08/17 21:01 06/08/17 19:33 69 133/69 (90) 06/08/17 19:33 69 19 133/69 (90) 96 Room Air 06/08/17 19:31 68 17 145/75 (98) 99 Room Air 06/08/17 18:12 99 Room Air 06/08/17 18:12 73 18 99 Room Air 06/08/17 18:05 79 18 96 06/08/17 18:05 80 18 147/70 (95) 98 Room Air 06/08/17 17:31 98.0 90 16 192/92 (125) 95 Physical Exam GENERAL: This is a well-nourished, well-developed patient, in no apparent distress. Patient speaks in clear complete sentences. Patient is pleasant. HEENT: Head is atraumatic and normocephalic. Neck is supple without lymphadenopathy and trachea is midline. No JVD or carotid bruits. CARDIOVASCULAR: Grade 2 systolic murmur left sternal border. Regular rate and rhythm without gallops or rubs. RESPIRATORY: Clear to auscultation. Breath sounds equal bilaterally. No wheezes , rales, or rhonchi. Chest wall is nontender. No use of accessory muscles. Well-healed scar over sternum. GASTROINTESTINAL: Abdomen is nontender, nondistended. Abdomen soft. No obvious pulsatile mass or bruit. No CVA tenderness. Strong femoral pulses bilaterally. Normal bowel sounds in all quadrants. MUSCULOSKELETAL: Patient is moving upper and lower extremities freely. No calf tenderness or edema, no Homans sign. Strong pulses in upper and lower extremities. NEUROLOGICAL: Patient is alert and oriented. Cranial nerves 2-12 are grossly intact. No focal deficits and speech is clear. SKIN: No rash and turgor is normal. Laboratory Laboratory Tests Test 06/08/17 18:15 06/08/17 21:50 06/09/17 03:43 White Blood Count 8.1 Red Blood Count 4.19 Hemoglobin 13.4 Hematocrit 38.5 Mean Corpuscular Volume 91.7 Mean Corpuscular Hemoglobin 32.0 Mean Corpuscular Hemoglobin Concent 34.9 Red Cell Distribution Width 13.1 Platelet Count 216 Mean Platelet Volume 7.2 Neutrophils (%) (Auto) 68.9 Lymphocytes (%) (Auto) 18.8 Monocytes (%) (Auto) 9.5 Eosinophils (%) (Auto) 2.4 Basophils (%) (Auto) 0.4 Neutrophils # (Auto) 5.6 Lymphocytes # (Auto) 1.5 Monocytes # (Auto) 0.8 Eosinophils # (Auto) 0.2 Basophils # (Auto) 0.0 CBC Comment DIFF FINAL Differential Comment Prothrombin Time 9.9 Prothromb Time International Ratio 0.9 Activated Partial Thromboplast Time 26.2 Blood Urea Nitrogen 17 Creatinine 0.91 Random Glucose 87 Calcium Level 9.3 Magnesium Level 2.2 Sodium Level 136 Potassium Level 4.3 Chloride Level 104 Carbon Dioxide Level 23.4 Anion Gap 9 Estimat Glomerular Filtration Rate 83 Total Creatine Kinase 173 164 137 Creatine Kinase MB 2.7 2.6 1.8 Troponin I LESS THAN 0.02 LESS THAN 0.02 LESS THAN 0.02 Result Diagram: 06/08/17181406/08/171814 Imaging Last 24 hours Impressions Chest X-Ray 06/08/17 8220 Signed Impressions: Service Date/Time: Thursday, June 08, 2017 18:15 - CONCLUSION: Cardiomegaly. The lungs are clear. Samuel Green MD Course EKGs are sinus rhythm with first-degree AV block. No significant ST segment depressions or elevations. Caprini VTE Risk Assessment Caprini VTE Risk Assessment: Mod/High Risk (score >= 2) Caprini Risk Assessment Model Point Value = 1 Point Value = 2 Point Value = 3 Point Value = 5 Age 41-60 Minor surgery BMI > 25 kg/m2 Swollen legs Varicose veins or History of unexplained or recurrent spontaneous Oral contraceptives or hormone replacement Sepsis (< 1 month) Serious lung disease, including pneumonia (< 1 month) Abnormal pulmonary function Acute myocardial infarction Congestive heart failure (< 1 month) History of inflammatory bowel disease Medical patient at bed rest Age 61-74 Arthroscopic surgery Major open surgery (> 45 min) Laparoscopic surgery (> 45 min) Malignancy Confined to bed (> 72 hours) Immobilizing plaster cast Central venous access Age >= 75 History of VTE Family history of VTE Factor V Leiden Prothrombin [id number] Lupus anticoagulant Anticardiolipin antibodies Elevated serum homocysteine Heparin-induced thrombocytopenia Other congenital or acquired thrombophilia Stroke (< 1 month) Elective arthroplasty Hip, pelvis, or leg fracture Acute spinal cord injury (< 1 month) Prophylaxis Regimen Total Risk Factor Score Risk Level Prophylaxis Regimen 0-1 Low Early ambulation 2 Moderate Order ONE of the following: *Sequential Compression Device (SCD) *Heparin 5000 units SQ BID 3-4 Higher Order ONE of the following medications: *Heparin 5000 units SQ TID *Enoxaparin/Lovenox 40 mg SQ daily (WT < 150 kg, CrCl > 30 mL/min) *Enoxaparin/Lovenox 30 mg SQ daily (WT < 150 kg, CrCl > 10-29 mL/min) *Enoxaparin/Lovenox 30 mg SQ BID (WT < 150 kg, CrCl > 30 mL/min) AND/OR *Sequential Compression Device (SCD) 5 or more Highest Order ONE of the following medications: *Heparin 5000 units SQ TID (Preferred with Epidurals) *Enoxaparin/Lovenox 40 mg SQ daily (WT < 150 kg, CrCl > 30 mL/min) *Enoxaparin/Lovenox 30 mg SQ daily (WT < 150 kg, CrCl > 10-29 mL/min) *Enoxaparin/Lovenox 30 mg SQ BID (WT < 150 kg, CrCl > 30 mL/min) AND *Sequential Compression Device (SCD) Assessment and Plan Assessment and Plan * Chest pain: He should have serial cardiac enzymes and EKGs for ruling out purposes. He will be seen by Dr. Berry of cardiology in the chest pain center and at that time further plan will be decided. Likely no stress testing. Recent cardiac catheterization and can follow-up with his flag car driver early next week. * Attention: Patient is really concerned of his hypertension. His blood pressure was little elevated when he initially came into the ED. We will continue monitor his vital signs. We can increase his lisinopril and have him keep a journal his blood pressures and have him follow-up with his physician. * Hyperlipidemia: Continue current medication. * GERD: Continue current medication. * Hypothyroidism: Continue current medication. Patient is stable at this time. He is agreeable to this plan. Geronimo Ramirez Jun 09, 2017 09:19
--- NOTE | 2017-06-09 09:34 | EKG ---
Date Performed: 06/09/2017 Time Performed: 00:22:56 PTAGE: 67 years EKG: Sinus rhythm WITH FIRST DEGREE AV BLOCK WITH OCCASIONAL SUPRAVENTRICULAR PREMATURE COMPLEXES PROBABLE INFERIOR MY OCARDIAL INFARCTION ABNORMAL ECG PREVIOUS TRACING : 06/08/2017 21.24 DOCTOR: Andrew Berry Interpretating Date/Time 06/09/2017 09:33:14
--- NOTE | 2017-06-09 09:35 | EKG ---
Date Performed: 06/08/2017 Time Performed: 21:24:31 PTAGE: 67 years EKG: SINUS BRADYCARDIA WITH FIRST DEGREE AV BLOCK POSSIBLE INFERIOR MYOCARDIAL INFARCTION ABNORM AL ECG NO SIG CHANGE FROM PRIOR PREVIOUS TRACING : 06/08/2017 17.43 DOCTOR: Andrew Berry Interpretating Date/Time 06/09/2017 09:34:37
[2017-06-09] MEDS: SODIUM CHLORIDE 0.9% FLUSH 10 ML FLUSH IV FLUSH SCH (09:58)
--- NOTE | 2017-06-09 11:02 | HHI.DCPOC ---
Discharge Care Plan Diagnosis: (1) Hx of CABG (2) Chest pain (3) CAD (coronary artery disease) (4) Hyperlipidemia (5) Hypothyroidism Goals to Promote Your Health * To prevent worsening of your condition and complications * To maintain your health at the optimal level Directions to Meet Your Goals Take your medications as prescribed Follow your dietary instruction Follow activity as directed Keep your appointments as scheduled Take your immunizations and boosters as scheduled If your symptoms worsen call your PCP, if no PCP go to Urgent Care Center or Emergency Room Smoking is Dangerous to Your Health. Avoid second hand smoke Call the 24-hour hour crisis hotline for domestic abuse at Geronimo Ramirez Jun 09, 2017 11:02
== END 2017-06-09 13:18 | disposition home or self-care (01) ==
LOC: NEPC 17:27 → NEDA 20:00 → NEPGCP 21:08
PROVIDERS: ADMIT Internal Medicine Interventional Cardiology; ATTEND Internal Medicine Interventional Cardiology
DX: R07.89 Other chest pain (principal); R06.02 Shortness of breath; R11.0 Nausea; R61 Generalized hyperhidrosis; I25.10 Atherosclerotic heart disease of native coronary artery without angina pectoris; I11.9 Hypertensive heart disease without heart failure; I51.7 Cardiomegaly; I44.0 Atrioventricular block, first degree; R01.1 Cardiac murmur, unspecified; E78.5 Hyperlipidemia, unspecified; E03.9 Hypothyroidism, unspecified; K21.9 Gastro-esophageal reflux disease without esophagitis; Z79.899 Other long term (current) drug therapy; Z79.82 Long term (current) use of aspirin; Z87.440 Personal history of urinary (tract) infections; Z95.1 Presence of aortocoronary bypass graft; Z98.1 Arthrodesis status; Z85.828 Personal history of other malignant neoplasm of skin
CPT/HCPCS: 71010; 80048; 82550; 82552; 83735; 84484; 85025; 85610; 85730; 93005; 99285; G0378